=== PATIENT | male | born 1980 | race Caucasian/White ===

== ENCOUNTER 2017-01-23 11:24 | Emergency (ER) | payer OTHER ==
--- NOTE | 2017-01-23 13:18 | ED CLINICAL REPORT ---
Clinical Report - Physicians/Mid Levels [facility] [address] [place] [address] 01/23/2017 11:26 Patient: DENNIS KLEIN Time Seen: 12:59 Bart 2016. Arrived- By private vehicle. HISTORY OF PRESENT ILLNESS Chief Complaint: Injury to left knee. 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 Patient is experiencing mild pain. Patient denies injury to the head or neck. 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 He denies any posterior pain denies history of DVT. Pain worsens with movement, especially of the end of his work day. Denies fevers or chills or shortness of breath.). REVIEW OF SYSTEMS The patient complains of pain on weight bearing. All systems otherwise negative, except as recorded above. PAST HISTORY The patient has not had a prior injury to the same area. Problems: Prior Injury, Same Area. Gastritis. Abdominal Pain. Dental Pain. Diabetes Mellitus. Back Pain. Tendonitis. Hypertension. Chronic Back Pain. Anxiety Reaction. Lumbar Strain. Intervertebral Disc Disease. Sciatica. Back Injury. Cellulitis. Sprain. Chest Pain. Substance Abuse. Tetanus Status. Allergic Reaction. Back Pain [RuleOut]. Additional Surgeries: Shoulder Surgery. Medications: None. Allergies: Ibuprofen.(hives). SOCIAL HISTORY Smoker- current status unknown. Alcohol use. No drug use. ADDITIONAL NOTES The nursing notes have been reviewed. PHYSICAL EXAM Vital Signs: 01/23/2017 11:33 BP: 111/59. HR: 64. RR: 18. O2 saturation: 99%. Temp: 97.7 F. Pain level now: 6/10. Appearance: Alert. Head: Head atraumatic. CVS: Normal heart rate and rhythm. Heart sounds normal. Respiratory: No respiratory distress. Breath sounds normal. Skin: Normal skin color. Extremities: Left hip. No tenderness or laceration. Left thigh. No tenderness or swelling. Left knee: mild tenderness and swelling located in the proximal tibia. No ligamentous laxity present. No joint effusion. No ecchymosis, puncture wound or deformity. No limitation in ROM. Left leg. No tenderness or swelling. Gait: Normal gait. Neuro, Vascular and Tendons: Vascular status intact. Neuro: Oriented X 3. No motor deficit. PROGRESS AND PROCEDURES PROCEDURES (Left Knee: knee sprain). Course of Care: Patient in the emergency department with knee pain ongoing for 4-6 weeks, largely mechanical related, worsens with activity and movement. I do not suspect DVT, no history of such. Pain reproducible after activity, anterior in nature. No shortness of breath. No signs of infectious process. 01/23/2017 13:28 BP: 109/72. HR: 80. RR: 16. O2 saturation: 99%. Temp: 98.2 F. Patient is stable. Physical exam findings are improved. Symptoms better. Patient/family counseled. Disposition: Discharged. Condition: good. CLINICAL IMPRESSION Sprain of the anterior cruciate ligament of the left knee. INSTRUCTIONS Apply ice. Elevate affected areas above chest level. You may walk and bear weight as tolerated. Do not work today. Prescription Medications: Hydrocodone/APAP 5mg / 325mg: take 1 orally every 6 hours as needed for pain. Dispense ten (10). No refill. Motrin 800 mg tablets: take 1 tablet orally every 8 hours for 5 days, as needed for pain. Dispense fifteen (15). No refill. Substitution is permissible. Understanding of the discharge instructions verbalized by patient. [facility]up with: [facility], , [address] [place], [address] Follow up. Call for the next available appointment. (Electronically signed by Susana Mcqueen P.A.-C 01/23/2017 14:06)
--- NOTE | 2017-01-23 13:18 | ED CLINICAL REPORT ---
Clinical Report - Physicians/Mid Levels [facility] [address] [place] [address] 01/23/2017 11:26 Patient: DENNIS KLEIN Time Seen: 12:59 Bart 2016. Arrived- By private vehicle. HISTORY OF PRESENT ILLNESS Chief Complaint: Injury to left knee. 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 Patient is experiencing mild pain. Patient denies injury to the head or neck. 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 He denies any posterior pain denies history of DVT. Pain worsens with movement, especially of the end of his work day. Denies fevers or chills or shortness of breath.). REVIEW OF SYSTEMS The patient complains of pain on weight bearing. All systems otherwise negative, except as recorded above. PAST HISTORY The patient has not had a prior injury to the same area. Problems: Prior Injury, Same Area. Gastritis. Abdominal Pain. Dental Pain. Diabetes Mellitus. Back Pain. Tendonitis. Hypertension. Chronic Back Pain. Anxiety Reaction. Lumbar Strain. Intervertebral Disc Disease. Sciatica. Back Injury. Cellulitis. Sprain. Chest Pain. Substance Abuse. Tetanus Status. Allergic Reaction. Back Pain [RuleOut]. Additional Surgeries: Shoulder Surgery. Medications: None. Allergies: Ibuprofen.(hives). SOCIAL HISTORY Smoker- current status unknown. Alcohol use. No drug use. ADDITIONAL NOTES The nursing notes have been reviewed. PHYSICAL EXAM Vital Signs: 01/23/2017 11:33 BP: 111/59. HR: 64. RR: 18. O2 saturation: 99%. Temp: 97.7 F. Pain level now: 6/10. Appearance: Alert. Head: Head atraumatic. CVS: Normal heart rate and rhythm. Heart sounds normal. Respiratory: No respiratory distress. Breath sounds normal. Skin: Normal skin color. Extremities: Left hip. No tenderness or laceration. Left thigh. No tenderness or swelling. Left knee: mild tenderness and swelling located in the proximal tibia. No ligamentous laxity present. No joint effusion. No ecchymosis, puncture wound or deformity. No limitation in ROM. Left leg. No tenderness or swelling. Gait: Normal gait. Neuro, Vascular and Tendons: Vascular status intact. Neuro: Oriented X 3. No motor deficit. PROGRESS AND PROCEDURES PROCEDURES (Left Knee: knee sprain). Course of Care: Patient in the emergency department with knee pain ongoing for 4-6 weeks, largely mechanical related, worsens with activity and movement. I do not suspect DVT, no history of such. Pain reproducible after activity, anterior in nature. No shortness of breath. No signs of infectious process. 01/23/2017 13:28 BP: 109/72. HR: 80. RR: 16. O2 saturation: 99%. Temp: 98.2 F. Patient is stable. Physical exam findings are improved. Symptoms better. Patient/family counseled. Disposition: Discharged. Condition: good. CLINICAL IMPRESSION Sprain of the anterior cruciate ligament of the left knee. INSTRUCTIONS Apply ice. Elevate affected areas above chest level. You may walk and bear weight as tolerated. Do not work today. Prescription Medications: Hydrocodone/APAP 5mg / 325mg: take 1 orally every 6 hours as needed for pain. Dispense ten (10). No refill. Motrin 800 mg tablets: take 1 tablet orally every 8 hours for 5 days, as needed for pain. Dispense fifteen (15). No refill. Substitution is permissible. Understanding of the discharge instructions verbalized by patient. Follow-up with: [facility], , [address] [place], [address] Follow up. Call for the next available appointment. (Electronically signed by Susana Mcqueen P.A.-C 01/23/2017 14:06)
--- NOTE | 2017-01-23 13:18 | ED NURSING NOTES ---
Clinical Report - Nurses [facility] [address] [place] [address] 01/23/2017 11:26 Patient: DENNIS KLEIN TRIAGE Triage time 11:34. Acuity: LEVEL 4. Chief Complaint: LEFT LOWER EXTREMITY PAIN and SWELLING. Alert. No acute distress. BLOSSOM COMA SCORE: [place] Coma Scale: 15- eyes open spontaneously (4); best verbal response- oriented x 4 (5); best motor response- obeys commands (6). --11:39 Adelaida Cavazos R.N. 11:33 01/23/17. BP: 111/59. HR: 64. RR: 18. O2 saturation: 99% on room air. Temp: 97.7 F (oral). Pain level now: 01/07. --11:39 Adelaida Cavazos R.N. Weight: 88.4 kg stated. Height/Length: 74 inches Per Patient. BMI: 25. --11:35 Adelaida Cavazos R.N. Medications None. --11:35 Adelaida Cavazos R.N. Medication/allergy information source: the patient. --11:39 Adelaida Cavazos R.N. Allergies Ibuprofen.(hives) --11:35 Adelaida Cavazos R.N. History Arrived by private vehicle. Historian: patient. Unaccompanied. Primary physician (none). This occurred (about 1 1/2 months). 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 SOCIAL HX: Heavy tobacco smoker- less than 1 pack per day. Regular alcohol use. No drug use. FALL RISK ASSESSMENT: Fall risk assessment completed. No fall risk identified. FUNCTIONAL ASSESSMENT: Functional assessment: no impairments noted. LEARNING NEEDS ASSESSMENT: The learning needs assessment revealed no barriers. --11:39 Adelaida Cavazos R.N. PROBLEMS: Prior Injury, Same Area. Gastritis. Abdominal Pain. Dental Pain. Diabetes Mellitus. Back Pain. Tendonitis. Hypertension. Chronic Back Pain. Anxiety Reaction. Lumbar Strain. Intervertebral Disc Disease. Sciatica. Back Injury. Cellulitis. Sprain. Chest Pain. Substance Abuse. Tetanus Status. Allergic Reaction. --11:36 Adelaida Cavazos R.N. Back Pain [RuleOut]. --11:36 Adelaida Cavazos R.N. ADDITIONAL SURGERIES: Shoulder Surgery. --11:36 Adelaida Cavazos R.N. Assessment GENERAL / NEURO / PSYCH: Alert. Oriented X 4. Appears in no acute distress. Patient appears calm and cooperative. RESPIRATORY: Respirations not labored. SKIN: Skin is warm and dry. --11:39 Adelaida Cavazos R.N. Interventions ID and allergy band on patient. To treatment room. --11:39 Adelaida Cavazos R.N. PHYSICAL ASSESSMENT 11:41 01/23/17. Ambulatory to room. Patient gowned. GENERAL / NEURO / PSYCH: Oriented X 4. Alert. Appears in no acute distress. SKIN: Skin intact. Skin is warm and dry. --11:41 Adelaida Cavazos R.N. NURSING PROGRESS NOTES 11:44 01/23/17. Patient gowned. Call light placed in reach. Side rails up x 1. Bed placed in lowest position. Brakes of bed on. --11:44 Adelaida Cavazos R.N. ( jocelyn wrap to left knee). --13:18 Jaky Wall ER TechPonce 13:25 01/23/2017 Hydrocodone-APAP (Hydrocodone-Acetaminophen) PO 5/325 mg Tablets 1 tab given. Allergies verified, confirmed 5 rights and sedative warning given to the patient. --13:25 Miller Rios R.N. DISPOSITION / DISCHARGE 13:29 01/23/17. Condition at departure: improved. No learning barriers present. Discharge instructions provided and reviewed with the patient. Reviewed warnings. Reviewed medication(s). Treatments reviewed. Patient verbalized understanding. Written instructions provided in Thai. The patient was discharged by the physician. He was discharged home and accompanied by gluing machine operator electronic. He left the Emergency Department ambulatory and via private vehicle. Head Loader driving. --13:29 Miller Rios R.N. 13:28 01/23/17. BP: 109/72. HR: 80. RR: 16. O2 saturation: 99% on room air. Temp: 98.2 F (oral). --13:29 Miller Rios R.N. 13:29 01/23/17. Departure time: 13:Jan 23 2017. --13:29 Miller Rios R.N. Locked/Released at 01/23/2017 13:35 by Miller Rios R.N.
--- NOTE | 2017-01-23 13:18 | ED ORDER SUMMARY ---
..... Patient: DENNIS KLEIN OrderSheet [facility] VisitID: [id number] [address] [place] [address] 36y, M Registration Date/Time: 01/23/2017 ORDER SHEET Weight: 88.4 kg (stated) Allergies: Ibuprofen GENERAL ORDERS: MEDICATION ORDERS: Hydrocodone-APAP PO 5/325 mg (NOW, HIGH ALERT MEDICATION) (13:14 01/23/2017 Farhan Sanchez) ([facility] 13:22 Raudel R.N.) (13:25 Raudel R.N.) IV FLUIDS: ORDER SHEET NOTES: [Electronically signed by Miller Rios R.N. (13:35 01/23/2017)] [Electronically signed by Susana Mcqueen P.A.-C (14:06 01/23/2017)] [Electronically locked/signed by Miller Rios R.N. (13:35 01/23/2017)]
--- NOTE | 2017-01-23 13:18 | ED ORDER SUMMARY ---
..... Patient: DENNIS KLEIN OrderSheet [facility] VisitID: [id number] [address] [place] [address] 36y, M Registration Date/Time: 01/23/2017 ORDER SHEET Weight: 88.4 kg (stated) Allergies: Ibuprofen GENERAL ORDERS: MEDICATION ORDERS: Hydrocodone-APAP PO 5/325 mg (NOW, HIGH ALERT MEDICATION) (13:14 01/23/2017 Farhan Sanchez) ([facility] 13:22 Raudel R.N.) (13:25 Raudel R.N.) IV FLUIDS: ORDER SHEET NOTES: [Electronically signed by Miller Rios R.N. (13:35 01/23/2017)] [Electronically signed by Susana Mcqueen P.A.-C (14:06 01/23/2017)] [Electronically locked/signed by Miller Rios R.N. (13:35 01/23/2017)]
--- NOTE | 2017-01-23 13:18 | ED NURSING NOTES ---
Clinical Report - Nurses [facility] [address] [place] [address] 01/23/2017 11:26 Patient: DENNIS KLEIN TRIAGE Triage time 11:34. Acuity: LEVEL 4. Chief Complaint: LEFT LOWER EXTREMITY PAIN and SWELLING. Alert. No acute distress. BLOSSOM COMA SCORE: [place] Coma Scale: 15- eyes open spontaneously (4); best verbal response- oriented x 4 (5); best motor response- obeys commands (6). --11:39 Adelaida Cavazos R.N. 11:33 01/23/17. BP: 111/59. HR: 64. RR: 18. O2 saturation: 99% on room air. Temp: 97.7 F (oral). Pain level now: 01/07. --11:39 Adelaida Cavazos R.N. Weight: 88.4 kg stated. Height/Length: 74 inches Per Patient. BMI: 25. --11:35 Adelaida Cavazos R.N. Medications None. --11:35 Adelaida Cavazos R.N. Medication/allergy information source: the patient. --11:39 Adelaida Cavazos R.N. Allergies Ibuprofen.(hives) --11:35 Adelaida Cavazos R.N. History Arrived by private vehicle. Historian: patient. Unaccompanied. Primary physician (none). This occurred (about 1 1/2 months). 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 SOCIAL HX: Heavy tobacco smoker- less than 1 pack per day. Regular alcohol use. No drug use. FALL RISK ASSESSMENT: Fall risk assessment completed. No fall risk identified. FUNCTIONAL ASSESSMENT: Functional assessment: no impairments noted. LEARNING NEEDS ASSESSMENT: The learning needs assessment revealed no barriers. --11:39 Adelaida Cavazos R.N. PROBLEMS: Prior Injury, Same Area. Gastritis. Abdominal Pain. Dental Pain. Diabetes Mellitus. Back Pain. Tendonitis. Hypertension. Chronic Back Pain. Anxiety Reaction. Lumbar Strain. Intervertebral Disc Disease. Sciatica. Back Injury. Cellulitis. Sprain. Chest Pain. Substance Abuse. Tetanus Status. Allergic Reaction. --11:36 Adelaida Cavazos R.N. Back Pain [RuleOut]. --11:36 Adelaida Cavazos R.N. ADDITIONAL SURGERIES: Shoulder Surgery. --11:36 Adelaida Cavazos R.N. Assessment GENERAL / NEURO / PSYCH: Alert. Oriented X 4. Appears in no acute distress. Patient appears calm and cooperative. RESPIRATORY: Respirations not labored. SKIN: Skin is warm and dry. --11:39 Adelaida Cavazos R.N. Interventions ID and allergy band on patient. To treatment room. --11:39 Adelaida Cavazos R.N. PHYSICAL ASSESSMENT 11:41 01/23/17. Ambulatory to room. Patient gowned. GENERAL / NEURO / PSYCH: Oriented X 4. Alert. Appears in no acute distress. SKIN: Skin intact. Skin is warm and dry. --11:41 Adelaida Cavazos R.N. NURSING PROGRESS NOTES 11:44 01/23/17. Patient gowned. Call light placed in reach. Side rails up x 1. Bed placed in lowest position. Brakes of bed on. --11:44 Adelaida Cavazos R.N. ( jocelyn wrap to left knee). --13:18 Jaky Wall ER TechPonce 13:25 01/23/2017 Hydrocodone-APAP (Hydrocodone-Acetaminophen) PO 5/325 mg Tablets 1 tab given. Allergies verified, confirmed 5 rights and sedative warning given to the patient. --13:25 Miller Rios R.N. DISPOSITION / DISCHARGE 13:29 01/23/17. Condition at departure: improved. No learning barriers present. Discharge instructions provided and reviewed with the patient. Reviewed warnings. Reviewed medication(s). Treatments reviewed. Patient verbalized understanding. Written instructions provided in Thai. The patient was discharged by the physician. He was discharged home and accompanied by systems accountant. He left the Emergency Department ambulatory and via private vehicle. Computer Customer Support Specialist driving. --13:29 Miller Rios R.N. 13:28 01/23/17. BP: 109/72. HR: 80. RR: 16. O2 saturation: 99% on room air. Temp: 98.2 F (oral). --13:29 Miller Rios R.N. 13:29 01/23/17. Departure time: 13:Jan 23 2017. --13:29 Miller Rios R.N. Locked/Released at 01/23/2017 13:35 by Miller Rios R.N.
--- NOTE | 2017-01-23 14:06 | ED MED RECONCILIATION SUMMARY ---
Patient: DENNIS KLEIN Medication Reconciliation Report [facility] VisitID: [id number] [address] [place] [address] 36y, M Registration Date/Time: 01/23/2017 Weight: 88.4 kg Height/Length: 74 in. BMI: 25.0 ALLERGIES: Ibuprofen The patient's Home Medications are listed below: NONE. The source(s) of the original Home Medication information: patient The following Medications were given to the patient in the Emergency Department: Hydrocodone-APAP [PO] PO 1 tab, administered: 01/23/2017 1:25:00 PM The following Medications were prescribed to the patient: Hydrocodone/APAP 5mg / 325mg: take 1 orally every 6 hours as needed for pain. Dispense ten (10). No refill. -- Susana Mcqueen, P.A.-Cheryl Motrin 800 mg tablets: take 1 tablet orally every 8 hours for 5 days, as needed for pain. Dispense fifteen (15). No refill. Substitution is permissible. -- Susana Mcqueen, P.A.-C
--- NOTE | 2017-01-23 14:06 | ED DISCHARGE INSTRUCTIONS ---
Patient: DENNIS KLEIN General Instructions [facility] VisitID: [id number] [address] [place], [place] [id number] 36y, M Registration Date/Time: 01/23/2017 Sprain of the anterior cruciate ligament of the left knee. INSTRUCTIONS Apply ice. Elevate affected areas above chest level. You may walk and bear weight as tolerated. Do not work today. Prescription Medications: Hydrocodone/APAP 5mg / 325mg: take 1 orally every 6 hours as needed for pain. Dispense ten (10). No refill. Motrin 800 mg tablets: take 1 tablet orally every 8 hours for 5 days, as needed for pain. Dispense fifteen (15). No refill. Substitution is permissible. Understanding of the discharge instructions verbalized by patient. Follow-up with: [facility], , [address], [place], [address] Follow up. Call for the next available appointment. ADDITIONAL INFORMATION Sprain, Knee A sprain is an injury to the ligaments or capsule that holds a joint together. There are no broken bones. Most sprains take three to six weeks to heal. If the ligament is completely torn (severe sprain), it can take months to recover from. Most knee sprains are treated with a splint, knee immobilizer or elastic wrap for support. Severe sprains may require surgery. Home care The following guidelines will help you care for your injury at home: Stay off the injured leg as much as possible until you can walk on it without pain. If you have a lot of pain with walking, crutches or a walker may be prescribed. (These can be rented or purchased at many pharmacies and surgical or orthopedic supply stores). Follow your doctor's advice regarding when to begin bearing weight on that leg. Keep your leg elevated to reduce pain and swelling. When sleeping, place a pillow under the injured leg. When sitting, support the injured leg so it is level with your waist. This is very important during the first 48 hours. Apply an ice pack (ice cubes in a plastic bag, wrapped in a towel) over the injured area for 20 minutes every 12 hours the first day. You can place the ice pack directly over the splint. If a Velcro knee immobilizer was applied, you can open this to apply the ice pack directly to the knee. Continue with ice packs 34 times a day for the next two days, then as needed for the relief of pain and swelling. You may use acetaminophen or ibuprofen to control pain, unless another pain medicine was prescribed. If you have chronic liver or kidney disease or ever had a stomach ulcer or GI bleeding, talk with your doctor before using these medicines. If you were given a splint, keep it completely dry at all times. Bathe with your splint out of the water, protected with a large plastic bag, rubber-banded at the top end. If a fiberglass splint gets wet, you can dry it with a hair-dryer. If you have a Velcro knee immobilizer, you can remove this to bathe, unless told otherwise. Follow-up care Follow up with your doctor as advised. Any X-rays you had today dont show any broken bones, breaks, or fractures. Sometimes fractures dont show up on the first X-ray. Bruises and sprains can sometimes hurt as much as a fracture. These injuries can take time to heal completely. If your symptoms dont improve or they get worse, talk with your doctor. You may need a repeat X-ray. When to seek medical care Get prompt medical attention if any of the following occur: The plaster cast or splint becomes wet or soft The fiberglass cast or splint remains wet for more than 24 hours Pain or swelling increases Toes become cold, blue, numb or tingly Hydrocodone Bitartrate, Acetaminophen Oral tablet What is this medicine? ACETAMINOPHEN; HYDROCODONE (a set a JOAQUIN romina fen; kristie droe KOE done) is a pain reliever. It is used to treat mild to moderate pain. How should I use this medicine? Take this medicine by mouth. Swallow it with a full glass of water. Follow the directions on the prescription label. If the medicine upsets your stomach, take the medicine with food or milk. Do not take more than you are told to take. Talk to your workforce services representative regarding the use of this medicine in children. This medicine is not approved for use in children. What side effects may I notice from receiving this medicine? Side effects that you should report to your doctor or health farm or ranch animal caretaker as soon as possible: allergic reactions like skin rash, itching or hives, swelling of the face, lips, or tongue breathing problems confusion feeling faint or lightheaded, falls stomach pain yellowing of the eyes or skin Side effects that usually do not require medical attention (report to your doctor or health farm or ranch animal caretaker if they continue or are bothersome): nausea, vomiting stomach upset What may interact with this medicine? alcohol antihistamines isoniazid medicines for depression, anxiety, or psychotic disturbances medicines for sleep muscle relaxants naltrexone narcotic medicines (opiates) for pain phenobarbital ritonavir tramadol What if I miss a dose? If you miss a dose, take it as soon as you can. If it is almost time for your next dose, take only that dose. Do not take double or extra doses. Where should I keep my medicine? Keep out of the reach of children. This medicine can be abused. Keep your medicine in a safe place to protect it from theft. Do not share this medicine with anyone. Selling or giving away this medicine is dangerous and against the law. Store at room temperature between 15 and 30 degrees C (59 and 86 degrees F). Protect from light. Keep container tightly closed. Throw away any unused medicine after the expiration date. Discard unused medicine and used packaging carefully. Pets and children can be harmed if they find used or lost packages. What should I tell my health care provider before I take this medicine? They need to know if you have any of these conditions: brain tumor Crohn's disease, inflammatory bowel disease, or ulcerative colitis drink more than 3 alcohol-containing drinks per day drug abuse or addiction head injury heart or circulation problems kidney disease or problems going to the bathroom liver disease lung disease, asthma, or breathing problems an unusual or allergic reaction to acetaminophen, hydrocodone, other opioid analgesics, other medicines, foods, dyes, or preservatives or trying to get breast-feeding What should I watch for while using this medicine? Tell your doctor or health farm or ranch animal caretaker if your pain does not go away, if it gets worse, or if you have new or a different type of pain. You may develop tolerance to the medicine. Tolerance means that you will need a higher dose of the medicine for pain relief. Tolerance is normal and is expected if you take the medicine for a long time. Do not suddenly stop taking your medicine because you may develop a severe reaction. Your body becomes used to the medicine. This does NOT mean you are addicted. Addiction is a behavior related to getting and using a drug for a non-medical reason. If you have pain, you have a medical reason to take pain medicine. Your doctor will tell you how much medicine to take. If your doctor wants you to stop the medicine, the dose will be slowly lowered over time to avoid any side effects. You may get drowsy or dizzy when you first start taking the medicine or change doses. Do not drive, use machinery, or do anything that may be dangerous until you know how the medicine affects you. Stand or sit up slowly. There are different types of narcotic medicines (opiates) for pain. If you take more than one type at the same time, you may have more side effects. Give your health care provider a list of all medicines you use. Your doctor will tell you how much medicine to take. Do not take more medicine than directed. Call emergency for help if you have problems breathing. The medicine will cause constipation. Try to have a bowel movement at least every 2 to 3 days. If you do not have a bowel movement for 3 days, call your doctor or health farm or ranch animal caretaker. Too much acetaminophen can be very dangerous. Do not take Tylenol (acetaminophen) or medicines that contain acetaminophen with this medicine. Many non-prescription medicines contain acetaminophen. Always read the labels carefully. You have been given the following additional information: Knee Sprain Hydrocodone Bitartrate, Acetaminophen Oral tablet You may walk and bear weight as tolerated. Do not work today. (Electronically signed by Susana Mcqueen P.A.-C 01/23/2017 14:06)
--- NOTE | 2017-01-23 14:06 | ED MED RECONCILIATION SUMMARY ---
Patient: DENNIS KLEIN Medication Reconciliation Report [facility] VisitID: [id number] [address] [place] [address] 36y, M Registration Date/Time: 01/23/2017 Weight: 88.4 kg Height/Length: 74 in. BMI: 25.0 ALLERGIES: Ibuprofen The patient's Home Medications are listed below: NONE. The source(s) of the original Home Medication information: patient The following Medications were given to the patient in the Emergency Department: Hydrocodone-APAP [PO] PO 1 tab, administered: 01/23/2017 1:25:00 PM The following Medications were prescribed to the patient: Hydrocodone/APAP 5mg / 325mg: take 1 orally every 6 hours as needed for pain. Dispense ten (10). No refill. -- Susana Mcqueen, P.A.-Cheryl Motrin 800 mg tablets: take 1 tablet orally every 8 hours for 5 days, as needed for pain. Dispense fifteen (15). No refill. Substitution is permissible. -- Susana Mcqueen, P.A.-C
--- NOTE | 2017-01-23 14:06 | ED MAR SUMMARY ---
..... Medication Administration Record [facility] [address] [place] [address] Patient: DENNIS KLEIN Visit ID: [id number] 36y, M Weight: 88.4 kg Height/Length: 74 in BMI: 25 ALLERGIES: Ibuprofen Given 13:25 01/23/2017 Miller Rios R.N. Medication Administered: HYDROCODONE-APAP [PO] (HYDROCODONE-ACETAMINOPHEN), Dose: 1 tab 5/325 mg Tablets PO. Medication Ordered: Hydrocodone-APAP PO 5/325 mg (NOW, HIGH ALERT MEDICATION).
--- NOTE | 2017-01-23 14:06 | ED MAR SUMMARY ---
..... Medication Administration Record [facility] [address] [place] [address] Patient: DENNIS KLEIN Visit ID: [id number] 36y, M Weight: 88.4 kg Height/Length: 74 in BMI: 25 ALLERGIES: Ibuprofen Given 13:25 01/23/2017 Miller Rios R.N. Medication Administered: HYDROCODONE-APAP [PO] (HYDROCODONE-ACETAMINOPHEN), Dose: 1 tab 5/325 mg Tablets PO. Medication Ordered: Hydrocodone-APAP PO 5/325 mg (NOW, HIGH ALERT MEDICATION).
--- NOTE | 2017-01-23 14:06 | ED DISCHARGE INSTRUCTIONS ---
Patient: DENNIS KLEIN General Instructions [facility] VisitID: [id number] [address] [place], [place] [id number] 36y, M Registration Date/Time: 01/23/2017 Sprain of the anterior cruciate ligament of the left knee. INSTRUCTIONS Apply ice. Elevate affected areas above chest level. You may walk and bear weight as tolerated. Do not work today. Prescription Medications: Hydrocodone/APAP 5mg / 325mg: take 1 orally every 6 hours as needed for pain. Dispense ten (10). No refill. Motrin 800 mg tablets: take 1 tablet orally every 8 hours for 5 days, as needed for pain. Dispense fifteen (15). No refill. Substitution is permissible. Understanding of the discharge instructions verbalized by patient. Follow-up with: [facility], , [address], [place], [address] Follow up. Call for the next available appointment. ADDITIONAL INFORMATION Sprain, Knee A sprain is an injury to the ligaments or capsule that holds a joint together. There are no broken bones. Most sprains take three to six weeks to heal. If the ligament is completely torn (severe sprain), it can take months to recover from. Most knee sprains are treated with a splint, knee immobilizer or elastic wrap for support. Severe sprains may require surgery. Home care The following guidelines will help you care for your injury at home: Stay off the injured leg as much as possible until you can walk on it without pain. If you have a lot of pain with walking, crutches or a walker may be prescribed. (These can be rented or purchased at many pharmacies and surgical or orthopedic supply stores). Follow your doctor's advice regarding when to begin bearing weight on that leg. Keep your leg elevated to reduce pain and swelling. When sleeping, place a pillow under the injured leg. When sitting, support the injured leg so it is level with your waist. This is very important during the first 48 hours. Apply an ice pack (ice cubes in a plastic bag, wrapped in a towel) over the injured area for 20 minutes every 12 hours the first day. You can place the ice pack directly over the splint. If a Velcro knee immobilizer was applied, you can open this to apply the ice pack directly to the knee. Continue with ice packs 34 times a day for the next two days, then as needed for the relief of pain and swelling. You may use acetaminophen or ibuprofen to control pain, unless another pain medicine was prescribed. If you have chronic liver or kidney disease or ever had a stomach ulcer or GI bleeding, talk with your doctor before using these medicines. If you were given a splint, keep it completely dry at all times. Bathe with your splint out of the water, protected with a large plastic bag, rubber-banded at the top end. If a fiberglass splint gets wet, you can dry it with a hair-dryer. If you have a Velcro knee immobilizer, you can remove this to bathe, unless told otherwise. Follow-up care Follow up with your doctor as advised. Any X-rays you had today dont show any broken bones, breaks, or fractures. Sometimes fractures dont show up on the first X-ray. Bruises and sprains can sometimes hurt as much as a fracture. These injuries can take time to heal completely. If your symptoms dont improve or they get worse, talk with your doctor. You may need a repeat X-ray. When to seek medical care Get prompt medical attention if any of the following occur: The plaster cast or splint becomes wet or soft The fiberglass cast or splint remains wet for more than 24 hours Pain or swelling increases Toes become cold, blue, numb or tingly Hydrocodone Bitartrate, Acetaminophen Oral tablet What is this medicine? ACETAMINOPHEN; HYDROCODONE (a set a JOAQUIN romina fen; kristie droe KOE done) is a pain reliever. It is used to treat mild to moderate pain. How should I use this medicine? Take this medicine by mouth. Swallow it with a full glass of water. Follow the directions on the prescription label. If the medicine upsets your stomach, take the medicine with food or milk. Do not take more than you are told to take. Talk to your fourchette sewer regarding the use of this medicine in children. This medicine is not approved for use in children. What side effects may I notice from receiving this medicine? Side effects that you should report to your doctor or health complex care nurse practitioner as soon as possible: allergic reactions like skin rash, itching or hives, swelling of the face, lips, or tongue breathing problems confusion feeling faint or lightheaded, falls stomach pain yellowing of the eyes or skin Side effects that usually do not require medical attention (report to your doctor or health complex care nurse practitioner if they continue or are bothersome): nausea, vomiting stomach upset What may interact with this medicine? alcohol antihistamines isoniazid medicines for depression, anxiety, or psychotic disturbances medicines for sleep muscle relaxants naltrexone narcotic medicines (opiates) for pain phenobarbital ritonavir tramadol What if I miss a dose? If you miss a dose, take it as soon as you can. If it is almost time for your next dose, take only that dose. Do not take double or extra doses. Where should I keep my medicine? Keep out of the reach of children. This medicine can be abused. Keep your medicine in a safe place to protect it from theft. Do not share this medicine with anyone. Selling or giving away this medicine is dangerous and against the law. Store at room temperature between 15 and 30 degrees C (59 and 86 degrees F). Protect from light. Keep container tightly closed. Throw away any unused medicine after the expiration date. Discard unused medicine and used packaging carefully. Pets and children can be harmed if they find used or lost packages. What should I tell my health care provider before I take this medicine? They need to know if you have any of these conditions: brain tumor Crohn's disease, inflammatory bowel disease, or ulcerative colitis drink more than 3 alcohol-containing drinks per day drug abuse or addiction head injury heart or circulation problems kidney disease or problems going to the bathroom liver disease lung disease, asthma, or breathing problems an unusual or allergic reaction to acetaminophen, hydrocodone, other opioid analgesics, other medicines, foods, dyes, or preservatives or trying to get breast-feeding What should I watch for while using this medicine? Tell your doctor or health complex care nurse practitioner if your pain does not go away, if it gets worse, or if you have new or a different type of pain. You may develop tolerance to the medicine. Tolerance means that you will need a higher dose of the medicine for pain relief. Tolerance is normal and is expected if you take the medicine for a long time. Do not suddenly stop taking your medicine because you may develop a severe reaction. Your body becomes used to the medicine. This does NOT mean you are addicted. Addiction is a behavior related to getting and using a drug for a non-medical reason. If you have pain, you have a medical reason to take pain medicine. Your doctor will tell you how much medicine to take. If your doctor wants you to stop the medicine, the dose will be slowly lowered over time to avoid any side effects. You may get drowsy or dizzy when you first start taking the medicine or change doses. Do not drive, use machinery, or do anything that may be dangerous until you know how the medicine affects you. Stand or sit up slowly. There are different types of narcotic medicines (opiates) for pain. If you take more than one type at the same time, you may have more side effects. Give your health care provider a list of all medicines you use. Your doctor will tell you how much medicine to take. Do not take more medicine than directed. Call emergency for help if you have problems breathing. The medicine will cause constipation. Try to have a bowel movement at least every 2 to 3 days. If you do not have a bowel movement for 3 days, call your doctor or health complex care nurse practitioner. Too much acetaminophen can be very dangerous. Do not take Tylenol (acetaminophen) or medicines that contain acetaminophen with this medicine. Many non-prescription medicines contain acetaminophen. Always read the labels carefully. You have been given the following additional information: Knee Sprain Hydrocodone Bitartrate, Acetaminophen Oral tablet You may walk and bear weight as tolerated. Do not work today. (Electronically signed by Susana Mcqueen P.A.-C 01/23/2017 14:06)
== END 2017-01-23 13:29 | disposition home or self-care (01) ==
LOC: ED SRH 11:24
DX: S83.512A Sprain of anterior cruciate ligament of left knee, initial encounter (principal); X58.XXXA Exposure to other specified factors, initial encounter; Y93.89 Activity, other specified; Y92.9 Unspecified place or not applicable; Y99.9 Unspecified external cause status; E11.9 Type 2 diabetes mellitus without complications; I10 Essential (primary) hypertension; Z88.6 Allergy status to analgesic agent